=== PATIENT | male | born 1970 | race Caucasian/White ===

== ENCOUNTER 2018-12-21 14:25 | Emergency (ER) | payer OTHER ==
[~2018-12-21] VITALS: Ht 180.3 cm; Wt 109.8 kg
[2018-12-21 14:27] VITALS: BP_SYST 144
[2018-12-21] MEDS ORDERED: LORazepam 1 MG TABLET PO ONE (15:00)
[2018-12-21 15:33] LABS: HEMOGLOBIN 15.3 g/dL (14.0-18.0); MEAN CORPUSCULAR HEMOGLOBIN 31 pg (27-31); MEAN CORPUSCULAR HGB CONC 35 % (32-36); MEAN CORPUSCULAR VOLUME 90 fL (79.0-98.0); PLATELET COUNT (AUTO) 220 K/uL (130-430); WHITE BLOOD COUNT (AUTO) 5.7 K/uL (4.8-10.8)
[2018-12-21 15:34] LABS: BASOPHILS % (AUTO) 0.3 % (0.0-2.0); EOSINOPHILS # (AUTO) 0.4 K/uL (0.0-0.4); EOSINOPHILS % (AUTO) 6.1 % (0.0-4.0); LYMPHOCYTES % (AUTO) 17.2 % (20.5-51.5); MONOCYTES # (AUTO) 0.5 K/uL (0.0-1.0); MONOCYTES % (AUTO) 8.1 % (1.7-9.3); NEUTROPHILS # (AUTO) 3.9 K/uL (1.8-7.7); NEUTROPHILS % (AUTO) 68.3 % (40.0-70.0)
[2018-12-21 15:42] LABS: CALCIUM 8.5 mg/dL (8.4-11.0); CREATININE 1.02 mg/dL (0.55-1.30); POTASSIUM 3.7 mmol/L (3.5-5.1)
[2018-12-21 15:43] LABS: PROTHROMBIN TIME 9.9 SECS (9.5-12.5)
[2018-12-21 15:47] LABS: TOTAL BILIRUBIN 0.5 mg/dL (0.0-1.0)
[2018-12-21 16:42] VITALS: BP_SYST 137
== END 2018-12-21 16:42 | disposition home or self-care (01) ==
LOC: SED 14:25
DX: R00.2 Palpitations (principal); H81.10 Benign paroxysmal vertigo, unspecified ear; R11.0 Nausea; I10 Essential (primary) hypertension
CPT/HCPCS: 36415; 71045; 80053; 82550-TC; 83880; 84484; 85025; 85610-TC; 85730-TC; 93005; 99284